=== PATIENT | female | born 1965 | race Caucasian/White ===

== ENCOUNTER 2018-05-12 09:57 | Day surgery (SDC) | payer MEDICAID ==
[2018-05-12] MEDS ORDERED: PROPOFOL 10 MG/ML VIAL IV ONE (09:58)
[2018-05-12] MEDS ORDERED: LIDOCAINE 2% MDV (20MG/ML) 20ML VIAL IV ONE (09:58)
[2018-05-12] MEDS ORDERED: FENTANYL PF 100MCG/2ML VIAL IV ONE (09:58)
--- NOTE | 2018-05-13 07:30 | Operative Note ---
DATE OF SURGERY: 05/12/2018 OPERATION: ESOPHAGOGASTRODUODENOSCOPY with biopsy. PREOPERATIVE DIAGNOSIS: Dysphagia. POSTOPERATIVE DIAGNOSIS: Nonspecific gastritis. PROCEDURE: After informed consent was obtained from the patient, she was placed in the left lateral decubitus position in the endoscopy suite, sedated and monitored by the department of anesthesia. A well-lubricated PON398 gastroscope was placed in the posterior oropharynx under direct visualization and passed to the proximal esophagus. The endoscope was advanced through the proximal, mid, and distal esophagus. The esophagus in its length with insertion of the endoscope was performed without difficulty or resistance. The GE junction and esophagus were unremarkable. The gastric body demonstrated some flecks of heme. There were some mild erythematous areas in the prepyloric region. The pylorus, duodenal bulb, and sweep were unremarkable. J-turn views of the proximal stomach were unrevealing. The endoscope was straightened. Gastric biopsies were obtained. The endoscope was removed from the patient with no new findings noted. RECOMMENDATIONS: I would suggest the patient undergo a CT of the neck to further evaluate her complaints as well as the complaints of thyroid area fullness. At this point, I see no obvious GI explanation for her issues although a motility disorder is possible. I still question whether there may be an oropharyngeal component that may be responsible, and perhaps this is anatomic related to her thyroid gland. As always, thank you for allowing me to participate in the healthcare of your patients. CC: BÁRBARA Fragoso
== END 2018-05-12 11:30 | disposition home or self-care (01) ==
LOC: HOP 09:57
PROVIDERS: ATTEND Internal Medicine Gastroenterology
DX: R13.10 Dysphagia, unspecified (principal); K29.70 Gastritis, unspecified, without bleeding; E78.00 Pure hypercholesterolemia, unspecified; K59.00 Constipation, unspecified
CPT/HCPCS: 43239; 00731; J3010